=== PATIENT | male | born 1980 | race Caucasian/White ===

== ENCOUNTER 2022-09-04 06:28 | Day surgery (SDC) | payer OTHER ==
[~2022-09-04 06:28] MED LIST: Lactated Ringers 1,000 ML IV SCH; Sodium Chloride 0.9% 10 ML Syringe FLUSH PRN; ceFAZolin 2 GM Vial IVPUSH ONE
[2022-09-04] MEDS ORDERED: Ondansetron 4 MG/2 ML SDV IVPUSH ONE (06:29)
[2022-09-04] MEDS ORDERED: fentaNYL 100 MCG/2 ML SDV IV ONE (06:29)
[2022-09-04] MEDS ORDERED: Propofol 200 MG/20 ML SDV IV ONE (06:29)
[2022-09-04] MEDS ORDERED: Ketorolac 30 MG/ML SDV IVPUSH ONE (06:29)
[2022-09-04] MEDS ORDERED: Dexamethasone 4 MG/ML 5 ML MDV IVPUSH ONE (06:29)
[2022-09-04] MEDS ORDERED: Midazolam 1 MG/ML 2 ML SDV IV ONE (06:29)
[2022-09-04] MEDS ORDERED: Bupivacaine 0.5% 50 ML MDV NERVRT ONE (07:54)
[2022-09-04] MEDS ORDERED: Lidocaine 1% with EPINEPHrine 1:100,000 20 ML MDV NERVRT ONE (07:54)
== END 2022-09-04 11:08 | disposition home or self-care (01) ==
LOC: FB.SDS 06:28
PROVIDERS: ATTEND Surgery
DX: K40.30 Unilateral inguinal hernia, with obstruction, without gangrene, not specified as recurrent (principal); D17.6 Benign lipomatous neoplasm of spermatic cord
CPT/HCPCS: 00830; 88302; 88304; C1781; J0690; J1100; J1885; J2250; J2405; J2704; J3010; J3490; J7120